=== PATIENT | female | born 1970 | race Caucasian/White ===

== ENCOUNTER 2023-08-24 14:29 | Emergency (ER) | payer OTHER, SELFPAY ==
--- NOTE | 2023-08-24 14:38 | XRR_ITS ---
PROCEDURE INFORMATION: Exam: XR Left Elbow Exam date and time: 08/24/2023 2:56 PM Age: 53 years old Clinical indication: Injury or trauma; Fall; Blunt trauma (contusions or hematomas); Elbow; Left TECHNIQUE: Imaging protocol: Radiologic exam of the left elbow. Views: 1 or 2 views. COMPARISON: No relevant prior studies available. FINDINGS: Bones/joints: Acute widely displaced transverse oblique distal humeral fracture. There is an approximately 4 cm overriding of the distal humeral fragment and humeral shaft with lateral angulation of the humeral shaft. Associated joint effusion. Correlation with CT is recommended for further detail. Radiocapitellar and ulnar trochlear alignment is grossly maintained. Soft tissues: Soft tissue edema and deformity of the antecubital fossa secondary to the displaced proximal humeral fragment. XR/XR elbow LT 2V [id number] IMPRESSION: 1. Acute widely displaced distal humeral fracture. Orthopedic evaluation and follow-up CT is recommended for further detail.
--- NOTE | 2023-08-24 14:39 | ED_ITS ---
HPI - Extremity Problem General: Chief complaint: Extremity Injury, Upper Stated complaint: Fall Time Seen by Provider: 08/24/23 14:35 Source: patient and EMS Mode of arrival: EMS Limitations: no limitations History of Present Illness: 53-year-old female states that she had f ell walking to her mailbox. States she had landed on her left arm has left elbow pain. She rates her pain a 8 out of 10 denies any other injuries. Associated symptoms: Deny chest pain, fever(s) or rash Review of Systems Const: Denies: fever(s), chills, body aches or change in appetite ENMT: Denies: throat pain or dental pain Card: Denies: chest pain Resp: Denies: dyspnea GI: Denies: abdominal pain, nausea, vomiting or diarrhea Musc: Reports: extremity pain; Denies: neck pain or back pain Skin/Breast: Denies: rash Neuro: Denies: headache(s) Physical Exam Const: COMMON NORMALS: no acute distress, patient oriented x3 and healthy appearing HENMT: COMMON NORMALS: normocephalic and atraumatic HEAD & SCALP: normocephalic and atraumatic Neck/C-Spine: COMMON NORMALS: full ROM and supple Chest: COMMONS NORMALS: normal inspection of the chest Resp: COMMON NORMALS: normal respiratory effort Cardio: COMMON NORMALS: regular rate, regular rhythm and No murmurs present (Cardio) RATE: regular rate RHYTHM: regular rhythm Extremity: NARRATIVE EXTREMITY EXAM: tenderness to left elbow distal pulses intact Neuro: COMMON NORMALS: patient oriented x3, moves all extremities and no focal motor deficits Psych: COMMON NORMALS: mental status grossly normal, Normal thought process present and cooperative THOUGHT PROCESS: Normal thought process present Skin: COMMON NORMALS: no rashes or lesions noted and no wounds GENERAL SKIN EXAM: no rashes or lesions noted Course Vital Signs: Vital signs: Vital Signs Temperature 98.7 F 08/24/23 14:43 Pulse Rate 60 08/24/23 15:18 Respiratory Rate 16 08/24/23 15:18 Blood Pressure 159/80 08/24/23 15:18 Pulse Oximetry 91 08/24/23 15:18 MDM - Extremity (Nontraumatic) Medical Decision Making Patient presents here with a left distal humerus fracture is severely displaced and spoke to my orthopedic surgeon who recommends transfer due to not having equipment did speak to [facility] will transfer there for higher level of care Medical Records I reviewed the patient's medical records. All radiology interpretation(s) finalized by discharge Discharge Plan Discharge Patient Disposition: Xfer Short-Term Hosp Clinical Impression: Fracture of humerus Condition: Stable Coding Level of Care Code ED Electrician Deck for Bre Payne
[2023-08-24 14:43] VITALS: BP 159/80; PULSE 65; RESP 20; TEMP 37.1; O2SAT 97; BMI 29.0
[2023-08-24 15:13] VITALS: RESP 16; O2SAT 96
[2023-08-24] MEDS: HYDROmorphone 1 mg/mL INJ 1 mL IVP (15:13)
[2023-08-24 15:18] VITALS: BP 159/80; PULSE 60; RESP 16; O2SAT 91
[2023-08-24 15:59] VITALS: BP 147/81; PULSE 106; O2SAT 97
[2023-08-24 16:23] LABS: Basophils % 0.4 %; Eosinophils # 0.1 10^3/uL (0.0-0.8); Eosinophils % 0.7 %; Hematocrit 42.8 % (36-47); Lymphocytes # 1.9 10^3/uL (0.8-4.8); Lymphocytes % 16.6 %; Mean Corpuscular HGB Conc 32.5 g/dL (30-55); Mean Corpuscular Hemoglobin 29.5 pg (27-33); Mean Corpuscular Volume 90.9 fl (85-98); Mean Platelet Volume 9.1 fL (7.4-10.4); Monocytes # 0.7 10^3/uL (0.2-0.9); Monocytes % 6.5 %; Neutrophils % 75.4 %; Nucleated Red Blood Cells % 0 %; Platelet Count 216 10^3/cmm (157-399); Red Blood Count 4.71 10^6/uL (3.85-5.65); White Blood Count 11.13 10^3/uL (3.29-11.43)
[2023-08-24 16:40] LABS: Alanine Aminotransferase 14 U/L (0-33); Albumin Level 4.4 g/dL (3.5-5.2); Alkaline Phosphatase 59 U/L (35-105); Anion Gap 15.6 (5-19); Aspartate Amino Transferase 16 U/L (0-32); Blood Urea Nitrogen 14 mg/dL (6-20); Calcium 9.5 mg/dL (8.5-10.5); Carbon Dioxide 25 mmol/L (22-29); Chloride 108 mmol/L (98-107); Globulin 2.9 g/dL (1.3-4.6); Glomerular Filtration Rate 128.1 mL/min (90-130); Glucose 106 mg/dL (65-115); Osmolality Calculated 301 mOsm/kg (285-295); Potassium 3.6 mmol/L (3.5-5.1); Sodium 145 mmol/L (136-145); Total Bilirubin 0.4 mg/dL (0.15-1.2); Total Protein 7.3 g/dL (6.6-8.7)
[2023-08-24 17:11] VITALS: BP 134/71; PULSE 95; O2SAT 97
[2023-08-24 18:00] LABS: INR 0.95 (0.8-1.2)
[2023-08-24 18:43] VITALS: RESP 17; O2SAT 98
[2023-08-24] MEDS: HYDROmorphone 1 mg/mL INJ 1 mL 2 MG IVP (18:43)
== END 2023-08-24 19:10 | disposition short-term general hospital (02) ==
PROVIDERS: Emergency Provider Emergency Medicine
DX: S42.402A Unspecified fracture of lower end of left humerus, initial encounter for closed fracture (principal); W19.XXXA Unspecified fall, initial encounter
CPT/HCPCS: 36415; 73070; 73080; 80053; 85025; 85610; 96374; 96376; 99284; J1170

== ENCOUNTER → 2024-03-16 12:59 | Outpatient (BNVA) | payer OTHER, SELFPAY | PROVIDERS: Referring Provider Family Medicine; Visit Provider Internal Medicine | DX: E27.9 Disorder of adrenal gland, unspecified (principal); R53.83 Other fatigue | CPT/HCPCS: 36415; 80053; 82088; 84244; 84439; 84443 ==

== ENCOUNTER 2024-04-03 14:26 | Outpatient (CLI) | payer OTHER, SELFPAY ==
[2024-04-03 18:24] LABS: Urine Creatinine 77 mg/dL (28-217)
[2024-04-03 19:21] LABS: Total Volume Urine 1900 ml
== END 2024-04-03 14:27 | disposition home or self-care (01) ==
PROVIDERS: Visit Provider Internal Medicine
DX: E27.9 Disorder of adrenal gland, unspecified (principal); R53.83 Other fatigue
CPT/HCPCS: 82384; 82530; 82570; 83835

== ENCOUNTER 2024-04-26 16:33 | Outpatient (CLI) | payer OTHER, SELFPAY ==
[2024-04-26 17:11] LABS: Blood Urea Nitrogen 16 mg/dL (6-20); Calcium 9.2 mg/dL (8.5-10.5); Carbon Dioxide 23 mmol/L (22-29); Chloride 102 mmol/L (98-107); Glomerular Filtration Rate 103.4 mL/min (90-130); Glucose 97 mg/dL (65-115); Osmolality Calculated 289 mOsm/kg (285-295); Sodium 139 mmol/L (136-145)
[2024-04-26 17:16] LABS: Anion Gap 18.4 (5-19); Potassium 4.4 mmol/L (3.5-5.1)
== END 2024-04-26 16:34 | disposition home or self-care (01) ==
LOC: LAB 16:35
PROVIDERS: PCP Internal Medicine; Visit Provider Internal Medicine
DX: E27.9 Disorder of adrenal gland, unspecified (principal); D35.01 Benign neoplasm of right adrenal gland; D35.02 Benign neoplasm of left adrenal gland
CPT/HCPCS: 36415; 80048

== ENCOUNTER 2024-05-09 17:07 | Emergency (ER) | payer OTHER, SELFPAY ==
[2024-05-09] VITALS (31 sets, daily range): BP systolic 125–167; BP diastolic 73–122; PULSE 47–72; RESP 16–24; TEMP 36.8; O2SAT 93–100; BMI 33.4
--- NOTE | 2024-05-09 18:03 | XRR_ITS ---
PROCEDURE INFORMATION: Exam: XR Chest Exam date and time: 05/09/2024 6:53 PM Age: 54 years old Clinical indication: Pain; Chest pressure; Additional info: Chest pain TECHNIQUE: Imaging protocol: Radiologic exam of the chest. Views: 1 view. COMPARISON: No relevant prior studies available. FINDINGS: Lungs: Unremarkable. No consolidation. Pleural spaces: Unremarkable. No pleural effusion. No pneumothorax. Heart/Mediastinum: Unremarkable. No cardiomegaly. Bones/joints: ACDF hardware noted in the lower cervical spine. XR/XR chest 1V portable [id number] IMPRESSION: No acute findings.
--- NOTE | 2024-05-09 18:03 | ECG_ITS ---
[facility] Test Date: 2024-05-09 Pat Name: Lisa Alvarez Department: Room: Gender: Female Training Specialist: : 1970 Requested By: Elmer Dover Order Number: [id number] Reading MD: AVIS SOLIS Measurements Intervals [place] Rate: 71 P: 55 WI: 156 QRS: -5 QRSD: 103 T: 42 QT: 390 QTc: 424 Interpretive Statements SINUS RHYTHM NONSPECIFIC T-WAVE ABNORMALITY No previous ECG available for comparison Electronically Signed On 05-10-2024 20:08:13 CDT by AVIS SOLIS [id number]
--- NOTE | 2024-05-09 18:57 | W.ED.CHESTPA ---
HPI - Chest Pain General: Chief Complaint: Chest Pain Stated Complaint: chest pain Time Seen by Provider: 05/09/24 18:37 History of Present Illness: Patient presents to the ER having chest pain that started the day for yesterday then went away, restarted again today about an hour ago. Patient did not have any nitro to take so she took her clonidine Zofran and 3 and 24 mg aspirin prior to arrival. Patient does state report recent change in blood pressure medicine. Patient rates pain an 8 out of 10 at this time says it substernal radiates into her back radiates up into her neck and down her left arm. She does report and shortness of breath. Did have a STEMI back in 2014 ended up with a stent in her RCA. Patient denies any diaphoresis or nausea at this time Related Data Home Medications Medication Instructions Recorded Confirmed amlodipine 10 mg tablet 10 mg PO DAILY 08/24/23 05/05/24 aspirin 325 mg tablet 325 mg PO DAILY 08/24/23 05/05/24 atorvastatin 20 mg tablet 20 mg PO QPM 08/24/23 05/05/24 butalbital 50 mg-acetaminophen 300 1 cap PO Q6H PRN Pain 08/24/23 05/05/24 mg-caffeine 40 mg-codeine 30 mg cap carvedilol 25 mg tablet 25 mg PO BID 08/24/23 05/05/24 cholecalciferol (vitamin D3) 25 25 mcg PO DAILY 08/24/23 05/05/24 mcg (1,000 unit) capsule (Vitamin D3) clonazepam 0.5 mg tablet 0.5 mg PO TID PRN Blood Pressure 08/24/23 05/05/24 eszopiclone 3 mg tablet (Lunesta) 3 mg PO BEDTIME 08/24/23 05/05/24 famotidine 40 mg tablet 40 mg PO BID 08/24/23 05/05/24 fenofibrate nanocrystallized 145 145 mg PO DAILY 08/24/23 05/05/24 mg tablet furosemide 40 mg tablet 40 mg PO DAILY PRN Edema 08/24/23 05/05/24 galcanezumab-gnlm 120 mg/mL 1 mg SUBCUT Q30D 08/24/23 05/05/24 subcutaneous pen injector (Emgality Pen) hydrochlorothiazide 25 mg tablet 25 mg PO DAILY PRN Blood Pressure 08/24/23 05/05/24 ibuprofen 800 mg tablet 800 mg PO Q8H PRN Pain 08/24/23 05/05/24 melatonin 10 mg tablet 30 mg PO DAILY 08/24/23 05/05/24 metformin 500 mg tablet,extended 500 mg PO DAILY 08/24/23 05/05/24 release 24 hr nitroglycerin 0.4 mg sublingual 0.4 mg sublingual Q5M PRN Chest 08/24/23 05/05/24 tablet (Nitrostat) Pain ondansetron 4 mg disintegrating 4 mg PO Q6H 08/24/23 05/05/24 tablet oxybutynin chloride 5 mg tablet 5 mg PO TID 08/24/23 05/05/24 pantoprazole 40 mg tablet,delayed 40 mg PO DAILY 08/24/23 05/05/24 release (Protonix) promethazine 25 mg tablet 25 mg PO QID PRN Nausea And 08/24/23 05/05/24 Vomiting rimegepant 75 mg disintegrating 75 mg PO DAILY PRN Migraine 08/24/23 05/05/24 tablet (Nurtec ODT) Headache ropinirole 2 mg tablet 2 mg PO TID 08/24/23 05/05/24 scopolamine base 1 mg over 3 days 1 patch transdermal Q72H PRN 08/24/23 05/05/24 transdermal patch Motion Sickness sucralfate 1 gram tablet (Carafate) 1 g PO QID 08/24/23 05/05/24 trazodone 100 mg tablet 100 mg PO BEDTIME 08/24/23 05/05/24 valacyclovir 1 gram tablet 1,000 mg PO DAILY PRN Cold Sores 08/24/23 05/05/24 (Valtrex) valsartan 320 mg tablet 320 mg PO DAILY 08/24/23 05/05/24 clonidine HCl 0.1 mg tablet 0.1 mg PO 04/06/24 05/05/24 escitalopram oxalate 20 mg tablet 20 mg PO 04/06/24 05/05/24 Previous Rx's Medication Instructions Recorded spironolactone 50 mg tablet 50 mg PO BID #60 tabs 04/06/24 nitroglycerin 0.4 mg sublingual 0.4 mg sublingual Q5M PRN chest 05/09/24 tablet pain #90 tabs Allergies Allergy/AdvReac Type Severity Reaction Status Date / Time No Known Allergies Allergy Unverified 05/05/24 09:48 Review of Systems General: Reports: 10 or more systems reviewed and unremarkable except in HPI and below PFSH ED PFSH: Medical History HTN (hypertension) Bilateral adrenal adenomas Social History Smoking and tobacco/nicotine status: never used tobacco/nicotine Physical Exam Const: COMMON NORMALS: no acute distress, average body habitus, patient oriented x3, no limitations, healthy appearing, alert and well nourished HENMT: COMMON NORMALS: normocephalic, atraumatic, hearing grossly normal bilaterally, external ears normal, Normal external nose present and moist oral mucous membranes HEAD & SCALP: normocephalic and atraumatic NOSE: Normal external nose present EXTERNAL EAR: Yes external ears normal Neck/C-Spine: COMMON NORMALS: no JVD Chest: COMMONS NORMALS: normal inspection of the chest and normal palpation of entire chest wall Resp: COMMON NORMALS: normal respiratory effort, No retractions, No use of accessory muscles and clear to auscultation bilaterally AUSCULTATION: clear to auscultation bilaterally Cardio: COMMON NORMALS: no JVD, regular rate, regular rhythm, S1 normal heart sound present, S2 normal heart sound present, No gallops present (Cardio), No clicks present (Cardio), No murmurs present (Cardio) and No rub (Cardio) RATE: regular rate RHYTHM: regular rhythm HEART SOUNDS: S1 normal heart sound present and S2 normal heart sound present GI: COMMON NORMALS: Normal to inspection, nondistended, normoactive bowel sounds present, Soft to palpation, non-tender, No hepatosplenomegaly present and no masses PALPATION: Yes Soft to palpation and Yes No hepatosplenomegaly present Neuro: COMMON NORMALS: patient oriented x3 SENSORIUM/ORIENTATION: Yes alert Course Vital Signs: Vital signs: Vital Signs Temperature 98.2 F 05/09/24 17:22 Pulse Rate 54 L 05/09/24 21:40 Respiratory Rate 17 05/09/24 19:03 Blood Pressure 140/83 05/09/24 21:40 Pulse Oximetry 99 05/09/24 21:40 Oxygen Delivery Me thod Room Air 05/09/24 20:45 MDM - Chest Pain Medical Decision Making Patient was worked up in standard chest pain fashion with serial EKGs serial enzymes and chest x-ray, all of which was essentially benign. Patient will be sent a nitro prescription to her pharmacy as she is out and referred urology through case management. Patient be discharged home. Lab Data 05/09/24 18:50 05/09/24 18:50 Radiology Impressions Chest X-Ray 05/09/24 18:03 IMPRESSION: No acute findings. Laboratory Results WBC 6.89 10^3/uL (3.29-11.43) 05/09/24 18:50 RBC 4.72 10^6/uL (3.85-5.65) 05/09/24 18:50 Hgb 14.30 g/dL (11.27-16.99) 05/09/24 18:50 Hct 41.4 % (36-47) 05/09/24 18:50 MCV 87.7 fl (85-98) 05/09/24 18:50 MCH 30.3 pg (27-33) 05/09/24 18:50 MCHC 34.5 g/dL (30-55) 05/09/24 18:50 RDW 14.8 % (12.1-15.1) 05/09/24 18:50 Plt Count 180 10^3/cmm (157-399) 05/09/24 18:50 MPV 9.4 fL (7.4-10.4) 05/09/24 18:50 Neut % (Auto) 39.5 % 05/09/24 18:50 Lymph % (Auto) 50.5 % 05/09/24 18:50 [place] % (Auto) 7.3 % 05/09/24 18:50 Eos % (Auto) 2.0 % 05/09/24 18:50 Baso % (Auto) 0.6 % 05/09/24 18:50 Neut # (Auto) 2.72 10^3/uL (1.8-7.7) 05/09/24 18:50 Lymph # (Auto) 3.5 10^3/uL (0.8-4.8) 05/09/24 18:50 [place] # (Auto) 0.5 10^3/uL (0.2-0.9) 05/09/24 18:50 Eos # (Auto) 0.1 10^3/uL (0.0-0.8) 05/09/24 18:50 Baso # (Auto) 0.0 10^3/uL (0.0-0.1) 05/09/24 18:50 Nucleated RBC % (auto) 0 % 05/09/24 18:50 Nucleated RBCs # 0.0 /100WBC 05/09/24 18:50 Sodium 140 mmol/L (136-145) 05/09/24 18:50 Potassium 3.4 mmol/L (3.5-5.1) L 05/09/24 18:50 Chloride 106 mmol/L (98-107) 05/09/24 18:50 Carbon Dioxide 20 mmol/L (22-29) L 05/09/24 18:50 Anion Gap 17.4 (5-19) 05/09/24 18:50 BUN 8 mg/dL (6-20) 05/09/24 18:50 Creatinine 0.5 mg/dL (0.5-0.9) 05/09/24 18:50 GFR Calculation 127.6 mL/min (90-130) 05/09/24 18:50 Glucose 76 mg/dL (65-115) 05/09/24 18:50 Calculated Osmolality 287 mOsm/kg (285-295) 05/09/24 18:50 Calcium 8.9 mg/dL (8.5-10.5) 05/09/24 18:50 Total Bilirubin 0.3 mg/dL (0.15-1.2) 05/09/24 18:50 AST 34 U/L (0-32) H 05/09/24 18:50 ALT 33 U/L (0-33) 05/09/24 18:50 Alkaline Phosphatase 87 U/L (35-105) 05/09/24 18:50 Troponin T Baseline 7 ng/L (0-10) 05/09/24 18:50 Troponin T 120 Minute 7.74 ng/L (0-10) 05/09/24 21:00 Delta Troponin T 0.74 ABS# (0-10) 05/09/24 21:00 Total Protein 7.0 g/dL (6.6-8.7) 05/09/24 18:50 Albumin 4.3 g/dL (3.5-5.2) 05/09/24 18:50 Globulin 2.7 g/dL (1.3-4.6) 05/09/24 18:50 All radiology interpretation(s) finalized by discharge Discharge Plan Discharge Patient Disposition: Home Clinical Impression: Chest pain Qualifiers: Chest pain type: unspecified Qualified Code(s): R07.9 - Chest pain, unspecified Condition: Stable Prescriptions: New nitroglycerin 0.4 mg tablet, sublingual 0.4 mg sublingual Q5M PRN (Reason: chest pain) Qty: 90 0RF Rx Instructions: do not exceed 3 doses per episode No Action clonidine HCl 0.1 mg tablet 0.1 mg PO escitalopram oxalate 20 mg tablet 20 mg PO spironolactone 50 mg tablet 50 mg PO BID Qty: 60 2RF carvedilol 25 mg Tablet 25 mg PO BID Rx Instructions: must administer with a meal/food atorvastatin 20 mg Tablet 20 mg PO QPM aspirin 325 mg Tablet 325 mg PO DAILY Valtrex 1 gram Tablet 1,000 mg PO DAILY PRN (Reason: Cold Sores) Carafate 1 gram Tablet 1 g PO QID famotidine 40 mg tablet 40 mg PO BID clonazepam 0.5 mg Tablet 0.5 mg PO TID PRN (Reason: Blood Pressure) trazodone 100 mg Tablet 100 mg PO BEDTIME amlodipine 10 mg Tablet 10 mg PO DAILY ropinirole 2 mg Tablet 2 mg PO TID Protonix 40 mg tablet,delayed release (DR/EC) 40 mg PO DAILY promethazine 25 mg Tablet 25 mg PO QID PRN (Reason: Nausea And Vomiting) valsartan 320 mg Tablet 320 mg PO DAILY scopolamine base 1 mg over 3 days Patch 3 Day 1 patch TRANSDERMAL Q72H PRN (Reason: Motion Sickness) ondansetron 4 mg Tablet,Disintegrating 4 mg PO Q6H Vitamin D3 25 mcg (1,000 unit) Capsule 25 mcg PO DAILY Lunesta 3 mg Tablet 3 mg PO BEDTIME fenofibrate nanocrystallized 145 mg Tablet 145 mg PO DAILY btuvdtawsb-cpmnnukvev-oov-cod [id number] mg Capsule 1 cap PO Q6H PRN (Reason: Pain) furosemide 40 mg Tablet 40 mg PO DAILY PRN (Reason: Edema) ibuprofen 800 mg Tablet 800 mg PO Q8H PRN (Reason: Pain) Nitrostat 0.4 mg Tablet, Sublingual 0.4 mg SUBLINGUAL Q5M PRN (Reason: Chest Pain) Rx Instructions: do not exceed 3 doses per episode hydrochlorothiazide 25 mg Tablet 25 mg PO DAILY PRN (Reason: Blood Pressure) oxybutynin chloride 5 mg Tablet 5 mg PO TID metformin 500 mg Tablet Extended Release 24 Hr 500 mg PO DAILY melatonin 10 mg Tablet 30 mg PO DAILY Emgality Pen 120 mg/mL Pen Injector 1 mg SUBCUT Q30D Nurtec ODT 75 mg Tablet,Disintegrating 75 mg PO DAILY PRN (Reason: Migraine Headache) Discharge Orders: Discharge ED (Routine); Ordered 05/09/24 Ordered By: Elmer Dover Referrals: Rhona Crandall MD [Primary Care Provider] - Patient Instructions: Chest Pain (DC) Activity Restrictions/Additional Instructions: Your evaluation in the ER for your chest pain was unremarkable. Your lab work your EKGs were benign. A prescription for nitroglycerin has been sent into your pharmacy. Please take it as directed. You have been referred to case management to get an appointment with a diagnostic sales specialist. They should be calling you probably tomorrow morning to arrange this follow-up. If your chest pain changes returns or worsens please feel free to return to the ER. Coding Level of Care Code ED Automobile Appraiser for Bre Payne
[2024-05-09 19:04] LABS: Basophils % 0.6 %; Eosinophils # 0.1 10^3/uL (0.0-0.8); Hematocrit 41.4 % (36-47); Lymphocytes # 3.5 10^3/uL (0.8-4.8); Lymphocytes % 50.5 %; Mean Corpuscular HGB Conc 34.5 g/dL (30-55); Mean Corpuscular Hemoglobin 30.3 pg (27-33); Mean Corpuscular Volume 87.7 fl (85-98); Mean Platelet Volume 9.4 fL (7.4-10.4); Monocytes # 0.5 10^3/uL (0.2-0.9); Monocytes % 7.3 %; Neutrophils # 2.72 10^3/uL (1.8-7.7); Neutrophils % 39.5 %; Nucleated Red Blood Cells % 0 %; Platelet Count 180 10^3/cmm (157-399); Red Blood Count 4.72 10^6/uL (3.85-5.65); Red Cell Distribution Width 14.8 % (12.1-15.1); White Blood Count 6.89 10^3/uL (3.29-11.43)
[2024-05-09] MEDS: nitroglycerin 0.4 mg sublingual Tablet SUBLINGUAL ×2 (19:12→20:09)
[2024-05-09] MEDS: ondansetron 2 mg/ML SDV 2 mL 4 MG IVP (19:13)
[2024-05-09] MEDS: morphine 4 mg/mL SDV 1 mL IVP (19:14)
[2024-05-09 19:20] LABS: Alanine Aminotransferase 33 U/L (0-33); Albumin Level 4.3 g/dL (3.5-5.2); Alkaline Phosphatase 87 U/L (35-105); Blood Urea Nitrogen 8 mg/dL (6-20); Calcium 8.9 mg/dL (8.5-10.5); Carbon Dioxide 20 mmol/L (22-29); Chloride 106 mmol/L (98-107); Creatinine Clr Calc Pharmacy 145.0562; Globulin 2.7 g/dL (1.3-4.6); Glomerular Filtration Rate 127.6 mL/min (90-130); Glucose 76 mg/dL (65-115); Osmolality Calculated 287 mOsm/kg (285-295); Sodium 140 mmol/L (136-145); Total Bilirubin 0.3 mg/dL (0.15-1.2)
[2024-05-09 19:23] LABS: Anion Gap 17.4 (5-19); Aspartate Amino Transferase 34 U/L (0-32); Potassium 3.4 mmol/L (3.5-5.1)
[2024-05-09 19:35] LABS: Troponin(5th) Baseline 7 ng/L (0-10)
--- NOTE | 2024-05-09 19:44 | ECG_ITS ---
[facility] Test Date: 2024-05-09 Pat Name: Lisa Alvarez Department: Room: Gender: Female Hearing Aid Technician: : 1970 Requested By: Elmer Dover Order Number: [id number] Reading MD: AVIS SOLIS Measurements Intervals [place] Rate: 57 P: 29 [place]: 151 QRS: 3 QRSD: 104 T: 28 QT: 449 QTc: 438 Interpretive Statements SINUS BRADYCARDIA Compared to ECG 05/09/2024 17:14:41 Sinus rhythm no longer present T-wave abnormality no longer present Electronically Signed On 05-10-2024 20:12:07 CDT by AVIS SOLIS [id number]
[2024-05-09 21:29] LABS: Troponin 5 2HR 7.74 ng/L (0-10); Troponin 5 2HR Delta 0.74 ABS# (0-10)
--- NOTE | 2024-05-10 08:45 | DCPLANNER ---
Message sent to Cardiology for referral -chest pain Dx CAD
== END 2024-05-09 22:01 | disposition home or self-care (01) ==
PROVIDERS: Emergency Provider Emergency Medicine; PCP Internal Medicine
DX: R07.9 Chest pain, unspecified (principal); Z79.82 Long term (current) use of aspirin; I10 Essential (primary) hypertension
CPT/HCPCS: 36415; 71045; 80053; 84484; 85025; 93005; 96374; 96375; 99285; J2270; J2405

== ENCOUNTER 2024-05-10 16:39 | Observation (INO) | payer OTHER, SELFPAY ==
--- NOTE | 2024-05-10 16:51 | P.HP_ITS ---
Providers/Chief Complaint 2 Admitting Physician: Kevin Kearns M.D Primary Care Provider: Rhona Crandall MD Chief Complaint: unstable angina History of Present Illness October Antonio is a 54 year old female with past medical history of RCA stent, hypertension who has been having worsening chest pain symptoms over the last 2 to 3 days. Pain starts substernally and radiates to the jaw and left arm. Multiple episode lasting up to 40 minutes. She was was seen in the ER yesterday and ACS was ruled out. However multiple episodes of chest discomfort since. EKG had nonspecific ST-T wave changes Review of Systems 2 General: Reports: 10 or more systems reviewed and unremarkable except in HPI and below Card: Reports: chest pain (pressure), palpitations, swelling of feet/ankles, lightheadedness, pre-syncope, dyspnea on exertion and other (Pain up neck and down left arm); Denies: irregular heart rhythm, edema, syncope, orthopnea or leg pain with exertion Resp: Reports: dyspnea; Denies: productive cough or non-productive cough Musc: Reports: joint pain (left shoulder blade); Denies: extremity pain or extremity swelling Neuro: Reports: dizziness Medications/Allergies Home Medications Medication Instructions Recorded Confirmed Last Taken Type amlodipine 10 mg tablet 10 mg PO DAILY 08/24/23 05/11/24 05/10/24 History aspirin 325 mg tablet 325 mg PO DAILY 08/24/23 05/11/24 05/09/24 History atorvastatin 20 mg tablet 20 mg PO QPM 08/24/23 05/11/24 05/10/24 History butalbital 50 mg-acetaminophen 300 1 cap PO Q6H PRN Pain 08/24/23 05/11/24 Unknown History mg-caffeine 40 mg-codeine 30 mg cap carvedilol 25 mg tablet 25 mg PO BID 08/24/23 05/11/24 05/10/24 History cholecalciferol (vitamin D3) 25 25 mcg PO DAILY 08/24/23 05/11/24 05/10/24 History mcg (1,000 unit) capsule (Vitamin D3) clonazepam 0.5 mg tablet 0.5 mg PO TID PRN Blood Pressure 08/24/23 05/11/24 05/10/24 History eszopiclone 3 mg tablet (Lunesta) 3 mg PO BEDTIME 0105/11/24 05/10/24 History famotidine 40 mg tablet 40 mg PO BID 08/24/23 05/11/24 05/10/24 History fenofibrate nanocrystallized 145 145 mg PO DAILY 08/24/23 05/11/24 05/09/24 History mg tablet furosemide 40 mg tablet 40 mg PO DAILY PRN Edema 08/24/23 05/11/24 Unknown History galcanezumab-gnlm 120 mg/mL 1 mg SUBCUT Q30D 08/24/23 05/11/24 04/15/24 History subcutaneous pen injector (Emgality Pen) hydrochlorothiazide 25 mg tablet 25 mg PO DAILY PRN Blood Pressure 08/24/23 05/11/24 Unknown History ibuprofen 800 mg tablet 800 mg PO Q8H PRN Pain 08/24/23 05/11/24 05/10/24 History melatonin 10 mg tablet 30 mg PO DAILY 08/24/23 05/11/24 05/09/24 History ondansetron 4 mg disintegrating 4 mg PO Q6H 08/24/23 05/11/24 05/10/24 History tablet oxybutynin chloride 5 mg tablet 5 mg PO TID 08/24/23 05/11/24 05/10/24 History pantoprazole 40 mg tablet,delayed 40 mg PO DAILY 08/24/23 05/11/24 05/10/24 History release (Protonix) promethazine 25 mg tablet 25 mg PO QID PRN Nausea And 08/24/23 05/11/24 05/10/24 History Vomiting rimegepant 75 mg disintegrating 75 mg PO DAILY PRN Migraine 08/24/23 05/11/24 Unknown History tablet (Nurtec ODT) Headache ropinirole 2 mg tablet 2 mg PO TID 08/24/23 05/11/24 05/10/24 History scopolamine base 1 mg over 3 days 1 patch transdermal Q72H PRN 08/24/23 05/11/24 Unknown History transdermal patch Motion Sickness sucralfate 1 gram tablet (Carafate) 1 g PO QID 08/24/23 05/11/24 05/10/24 History valacyclovir 1 gram tablet 1,000 mg PO DAILY PRN Cold Sores 08/24/23 05/11/24 05/10/24 History (Valtrex) valsartan 320 mg tablet 320 mg PO DAILY 08/24/23 05/11/24 05/03/24 History escitalopram oxalate 20 mg tablet 20 mg PO DAILY 04/06/24 05/11/24 05/10/24 History spironolactone 50 mg tablet 50 mg PO BID #60 tabs 04/06/24 05/11/24 05/10/24 Rx nitroglycerin 0.4 mg sublingual 0.4 mg sublingual Q5M PRN chest 05/09/24 05/11/24 05/09/24 Rx tablet pain #90 tabs tizanidine 4 mg tablet 4 mg PO TID 05/11/24 05/11/24 Unknown History Allergies Allergy/AdvReac Type Severity Reaction Status Date / Time No Known Allergies Allergy Verified 05/10/24 12:33 PFSH Acute 2 PFSH: Medical History HTN (hypertension) Bilateral adrenal adenomas Social History Smoking and tobacco/nicotine status: current every day tobacco/nicotine user Physical Exam 2 Narrative: GENERAL: Patient is alert, awake and oriented x3. [] NECK: No jugular vein distension. [] HEENT: No cyanosis. No icterus. No pallor. [] HEART: Regular S1 and S2. No murmur, rub or gallop. [] LUNGS: Clear to auscultate bilaterally. [] CENTRAL NERVOUS SYSTEM: Grossly nonfocal. [] EXTREMITIES: Lower extremities with 1+ edema bilaterally. Data 05/10/24 19:20 05/10/24 19:20 A&P Assessment and plan (1) Worsening angina: (2) HTN (hypertension): (3) Coronary artery disease: (4) Bilateral adrenal adenomas: Plan Patient has presented to clinic with worsening chest pain symptoms. This is concerning for unstable angina. She had ER visit yesterday where ACS was ruled out. Directly admitted for coronary angiogram given worsening chest pain symptoms over the last 2 to 3 days lasting about 20 minutes. EKG has nonspecific changes. We will trend troponins. Ordering echocardiogram. N.p.o. past midnight. Coronary angiogram with possible PCI in the morning. Risks and benefits of procedure been discussed. Attestations 2 Medical Necessity Statement*: Care not expected to cross 2 midnights. Patient has worsening anginal symptoms and plan for coronary angiogram with possible PCI in the AM Coding Level of Care Code Acute Code for Chg Fwd Diagnoses Worsening angina I20.0 HTN (hypertension) I10 Coronary artery disease I25.10 Bilateral adrenal adenomas D35.01; D35.02
[2024-05-10 17:13] VITALS: BP 152/84; PULSE 67; RESP 23; TEMP 36.8; O2SAT 97
[2024-05-10 17:34] VITALS: BP 180/90; PULSE 66; RESP 16; TEMP 37; O2SAT 96
[2024-05-10] MEDS: sodium chloride 0.9% 1,000 ML 75 ML IV (18:00)
[2024-05-10] MEDS: carvedilol 25 mg Tablet PO (18:01)
[2024-05-10] MEDS: atorvastatin 40 mg Tablet PO (18:01)
[2024-05-10 18:16] VITALS: BMI 33.5
--- NOTE | 2024-05-10 18:26 | ECG_ITS ---
[facility] Test Date: 2024-05-10 Pat Name: Lisa Alvarez Department: Room: 105 Gender: Female Service Desk Manager: : 1970 Requested By: Kevin Kearns Order Number: [id number] Reading MD: AVIS SOLIS Measurements Intervals [place] Rate: 64 P: 11 FL: 136 QRS: -14 QRSD: 110 T: 19 QT: 418 QTc: 431 Interpretive Statements SINUS RHYTHM Compared to ECG 05/09/2024 19:44:02 Sinus bradycardia no longer present Electronically Signed On 05-10-2024 20:10:38 CDT by AVIS SOLIS [id number]
[2024-05-10] MEDS: heparin 5,000 unit/mL INJ 1 mL IVP (18:29)
[2024-05-10] MEDS: nitroglycerin 1 gm/inch oint Pkt 1 INCH TOPICAL (18:29)
[2024-05-10] MEDS: heparin drip 25,000 UNIT/500 ML PREMIX 27 UNIT IV (18:30)
--- NOTE | 2024-05-10 19:22 | PC.NURSE ---
direct admit from dr magaña's office at 1700.sr on monitor.oriented to room environment.instructed to notify staff for any chest pain,sob,or for any concerns at all.pt verb understanding of instructions
[2024-05-10 19:36] LABS: Platelet Count 163 10^3/cmm (157-399)
[2024-05-10 19:51] LABS: Chloride 109 mmol/L (98-107); Potassium 3.3 mmol/L (3.5-5.1); Sodium 140 mmol/L (136-145)
[2024-05-10 19:55] LABS: Troponin(5th) Baseline 7 ng/L (0-10)
[2024-05-10 20:00] VITALS: BP 160/103; PULSE 68; RESP 17; TEMP 36.8; O2SAT 97
[2024-05-10 20:12] LABS: Alkaline Phosphatase 82 U/L (35-105)
[2024-05-10] MEDS: spironolactone 25 mg Tablet 50 MG PO (20:12)
[2024-05-10] MEDS: CLONazepam 0.5 mg Tablet PO (21:07)
[2024-05-10] MEDS: ropinirole 2 mg Tablet PO (21:07)
[2024-05-10] MEDS: oxybutynin 5 mg Tablet PO (21:07)
[2024-05-10 21:15] LABS: Alanine Aminotransferase 26 U/L (0-33); Anion Gap 13.3 (5-19); Aspartate Amino Transferase 26 U/L (0-32); Blood Urea Nitrogen 14 mg/dL (6-20); Carbon Dioxide 22 mmol/L (22-29); Creatinine Clr Calc Pharmacy 145.4608; Globulin 2.6 g/dL (1.3-4.6); Glomerular Filtration Rate 127.6 mL/min (90-130); Glucose 81 mg/dL (65-115); Osmolality Calculated 292 mOsm/kg (285-295); Total Bilirubin 0.2 mg/dL (0.15-1.2); Total Protein 6.5 g/dL (6.6-8.7)
[2024-05-10 21:32] LABS: Calcium 8.5 mg/dL (8.5-10.5)
[2024-05-10 22:02] LABS: Troponin 5 2HR 7.56 ng/L (0-10); Troponin 5 2HR Delta 0.56 ABS# (0-10)
[2024-05-11] VITALS (9 sets, daily range): BP systolic 128–181; BP diastolic 63–93; PULSE 55–88; RESP 16–27; TEMP 36.6–36.8; O2SAT 90–98
[2024-05-11] MEDS: nitroglycerin 1 gm/inch oint Pkt 1 INCH TOPICAL (00:27)
[2024-05-11 01:13] LABS: Partial Thromboplastin Time 134.2 SECONDS (23.9-36.7); Troponin 5 6HR 6.64 ng/L (0-10)
[2024-05-11 01:15] LABS: Troponin 5 6HR Delta -0.36 ng/L (0-12)
[2024-05-11] MEDS: sodium chloride 0.9% 1,000 ML 75 ML IV (05:03)
[2024-05-11] MEDS: diphenhydrAMINE 50 mg Capsule PO (05:03)
--- NOTE | 2024-05-11 05:14 | XACV_ITS ---
Exam Room: 2 Ht: 168 cm Wt: 94 kg BSA: 2.13 m2 Gender: Female : 1970 Any Known Allergies: No known allergies Exam Priority: Routine Procedure(s): Procedure Description: Diagnostic procedure Procedure Description: Left Heart Catheterization Procedure Description: Left ventriculography Procedure Description: Coronary Angiography Diagnostic Cath Status: Urgent Diagnostic Findings * INDICATION: Worsening angina. * No significant disease noted in the Left Main, Left Anterior Descending, Right, or Circumflex coronary arteries. * Proximal RCA has a patent prior stent. * Coronary angiography shows right dominance. Conclusions 1. No significant disease noted in the Left Main, Left Anterior Descending, Right, or Circumflex coronary arteries. 2. Normal left ventricular systolic function. Ejection fraction of 60%. Recommendations * Aggressive risk factor modification. Chest pain likely secondary to microvascular dysfunction. We will start long acting nitrate. * Outpatient cardiology follow up in 2 weeks. Interventional RX Recommendation: medical therapy and/or counseling Diagnostic RX Recommendation: medical therapy and/or counseling Anticoagulation: Heparin Ventriculography Ejection Fraction: 60.0 % Pressures Phase:Rest AO : 148 / 87 ( 114 ) @ 7:32:00 AM 170 / 83 ( 118 ) @ 7:38:00 AM 172 / 81 ( 118 ) @ 7:38:00 AM LV : 168 / -2 / 22 @ 7:37:00 AM 181 / / 26 @ 7:38:00 AM 180 / / 26 @ 7:38:00 AM Valves Phase:DefaultPhase AV : 9.0 @ 6:43:15 AM AV Mean Gradient: 9.0 @ 6:43:15 AM 9.0 @ 6:43:16 AM Clinical Evaluation EBL: 5mL-10mL Procedural Details Procedure Consent Obtained. Admit Source: In Patient. Pre-Procedure Time Out. Identified patient by full name and date of as verbalized by the patient/guarantor. Does the consent match the physician's order: Yes. Accurate & Complete Informed Consent: Yes. Inpatient/Outpatient History & Physical on Chart: Yes. If H&P is completed, is and addenduem needed: No; If yes, is the addendum complete: N/A. Visualize and Verify Site with Patient/Guarantor: N/A. Relevant Radiology Images available: Yes. Pre-op teaching completed and patient verbalized understanding. The risks, benefits, and alternatives of sedation and/or procedure were discussed by physician. The patient agrees to continue. Procedure started. [facility] Clinical Fraility Score: 3: Managing Well. Senior Software Tester Indications: Other. Chest Pain Symptom Assessment: Atypical Angina. Correct patient, site and procedure confirmed by cath team. Current diagnosis: Chest Pain. PERRLA. Strong, equal hand sr vice president bilaterally. Lungs clear x 5 lobes. IV Site on Arrival: 18 gauge in the left forearm. IV Fluids: 0.9% NaCl at KVO. 0 mL infused prior to supervisor dental laboratory. Pre Procedural Pulses: bilateral dorsalis pedis was 3+. Pre Procedural Pulses: bilateral posterior tibial was 3+. Pre Procedural Pulses: bilateral radial was 3+. Oxygen started at 2liters/min via nasal canula. right groin was prepped with chloroprep then draped in the usual sterile fashion. right radial was prepped with chloroprep then draped in the usual sterile fashion. Baseline sample Acquired. HR: 69 BPM. Physician arrived. Physician scrubbed in. Immediate Pre-Procedure Time Out. Correct Patient: Yes; Correct Procedure: Yes; Correct Site: Yes; Correct Patient Position: Yes; Correct Supplies: Yes; Dried Flammable Prep: Yes; Blood Products Available: N/A;. Lidocaine 1% infiltrated to the right radial. Arterial access obtained. A 5 upper sorbian TIG catheter in over wire. Multiple views taken of left coronary artery. Catheter redirected to the RCA. Multiple views taken of right coronary artery. Catheter removed over the exchange wire. A 5 upper sorbian Angled Pig catheter in over wire. EDP Sample taken: LV 168/-3,22; HR: 59 BPM; SpO2: 97%. LV gram performed in DANIEL @ 10 mL/second for a total of 30 mL. EDP Sample taken: LV 181/5,26; HR: 66 BPM; SpO2: 94%. Pullback taken: LV 180/4,26; AO 170/83(118); Mean: 9mmHg, Peak to Peak: 9mmHg, SEP: 20sec/min; HR: 61 BPM; SpO2: 94%. Catheter removed over the exchange wire. A TR Band was successful obtaining hemostatsis at the Right Radial artery insertion site. Post Procedure: Pulses reassessed and unchanged. PERRLA. Strong, equal hand sr vice president bilaterally. No VTE prophylaxis required. Medication's Wasted: Lidocaine 1% = 18 mL. Medication's Wasted: Nitro = 49.8 mg. Medication's Wasted: Heparin = 3500 units. Medication's Wasted: Other = Fentanyl 25 mcg. Vital chart was stopped. Total IV fluids: 25 mL. Complications: None. Estimated blood loss: 5mL-10mL. Responsiveness - Normal response to verbal stimuli; alert and oriented, PERRLA. Airway - Unaffected, no intervention required; spontaneous ventilation. Circulation: W/N/L, pulses unchanged. Nausea/Vomiting: No. Procedure completed. Patient transferred by bed to 1st floor. Access Site Site: Right Radial artery Sheath Size: 6 Fr Hemostasis Method: TR Band Hemostasis Success: Successful Procedure Medications Start: 6:26 AM Stop: 6:26 AM Medication: Versed Amount: 1 mg Route: I.V. Start: 6:26 AM Stop: 6:26 AM Medication: Fentanyl Amount: 50 mcg Route: I.V. Start: 6:28 AM Stop: 6:28 AM Medication: Versed Amount: 1 mg Route: I.V. Start: 6:29 AM Stop: 6:29 AM Medication: Nitrogylcerin Amount: 200 mcg Route: I.A. Start: 6:30 AM Stop: 6:30 AM Medication: Heparin Amount: 2500 units Route: I.V. Start: 6:33 AM Stop: 6:33 AM Medication: Fentanyl Amount: 25 mcg Route: I.V. I, the attending physician, have reviewed and verified all procedure medications. Yes, all medications given per verbal order History/Risk Factors Hypertension: Yes Dyslipidemia: No Peripheral Arterial Disease (PAD): No Myocardial Infarction (ME): No Obesity: No Tobacco Use: Current/Recent(w/in 1 year) Prior Interventions PCI: No CABG: No Valve Surgery: No Report Signatures Finalized by Kevin Kearns MD on 05/11/2024 06:56 AM
[2024-05-11] MEDS: lidocaine 1% 5 ML in potassium chloride premix 100 ML 52.5 ML IV (05:57)
[2024-05-11] MEDS: aspirin 325 mg Tablet PO (05:57)
--- NOTE | 2024-05-11 06:18 | PC.NURSE ---
Dr Kearns was notified about pt potassium 3.3. New order put in, potassium was scanned and sent with microbiology lab technician to procedure.
--- NOTE | 2024-05-11 06:49 | W.PM.OPSUD ---
Surgery/Procedure H&P Update DATE OF PROCEDURE: May 11, 2024 DATE H&P PERFORMED: 05/10/24 H&P UPDATE INFORMATION: I have reviewed H&P completed within last 30 days, I have examined patient prior to procedure and No changes to prior documentation PREOP DIAGNOSIS: Worsening angina PRIMARY INDICATION FOR PROCEDURE: Worsening angina PLANNED PROCEDURE: Operation Date: 05/11/24 06:00 Proposed Procedures p Cardiac Catheterization(Left) - Kevin Kearns M.D Possible percutaneous coronary intervention PATIENT REASSESSED PRIOR TO SEDATION, WITH NO CHANGE NOTED: Yes PHYSICAL EXAM: alert, oriented x 3, clear to auscultation bilaterally and regular rate & rhythm AIRWAY EVAL/ANESTHESIA PLAN: normal airway, ASA III, Local Anesthesia, Risks, benefits & alternatives of sedation and/or procedure discussed and Patient agrees to continue as planned ADDITIONAL INFORMATION: Moderate sedation
--- NOTE | 2024-05-11 07:02 | PC.NURSE ---
Patient returned to [facility] from manager laboratory at 0650 with a right radial TR-band.
[2024-05-11] MEDS: potassium chloride ER 20 mEq Tablet 40 MEQ PO (08:30)
[2024-05-11] MEDS: oxybutynin 5 mg Tablet PO (08:30)
[2024-05-11] MEDS: ropinirole 2 mg Tablet PO (08:30)
[2024-05-11] MEDS: carvedilol 25 mg Tablet PO (08:30)
[2024-05-11] MEDS: amlodipine 10 mg Tablet PO (08:30)
[2024-05-11] MEDS: spironolactone 25 mg Tablet 50 MG PO (08:30)
--- NOTE | 2024-05-11 09:20 | P.DS_ITS ---
Discharge Providers Date of Admission: 05/10/24 16:39 Date of Discharge: May 11, 2024 Attending Provider at Admission: Kevin Kearns M.D Attending Provider at Discharge: Kevin Kearns M.D Primary Care Provider: Rhona Crandall MD Diagnoses at Discharge Discharge Diagnosis (1) Worsening angina: Status: Inactive (2) HTN (hypertension): Status: Acute (3) Coronary artery disease: Status: Acute (4) Bilateral adrenal adenomas: Status: Acute Reason for Visit Reason for Visit: unstable angina Brief History: 54-year-old woman with past medical hist ory of coronary artery disease who has been having significant worsening chest pain symptoms over the last few days. Had ER visit for chest discomfort where ACS was ruled out and she was discharged with close follow-up with cardiology. However she continued having chest pain episodes. Urgent appointment with cardiology was made and was directly admitted from clinic to hospital for coronary angiogram as patient's symptoms concerning for unstable angina Hospital Course Hospital Course Coronary angiogram demonstrated patent prior RCA stent and no significant stenosis. Symptoms likely secondary to microvascular dysfunction. Patient was discharged home on isosorbide mononitrate. Echo showed normal LV systolic function. Physical Exam Narrative: GENERAL: Patient is alert, awake and oriented x3. [] NECK: No jugular vein distension. [] HEENT: No cyanosis. No icterus. No pallor. [] HEART: Regular S1 and S2. No murmur, rub or gallop. [] LUNGS: Clear to auscultate bilaterally. [] CENTRAL NERVOUS SYSTEM: Grossly nonfocal. [] EXTREMITIES: Lower extremities with 1+ edema bilaterally. Discharge Data Studies Completed and Pending Completed Studies During Hospitalization Category Date Time Status REACTOR SERVICE OPERATOR request for service Routine Exams 05/11/24 05:14 Completed Pending at discharge Category Date Time Status Platelet Count Q2D Lab 05/12/24 04:00 Ordered Platelet Count Q2D Lab 05/14/24 04:00 Ordered Laboratory Results Plt Count 163 10^3/cmm (157-399) 05/10/24 19:20 APTT 134.2 SECONDS (23.9-36.7) H 05/11/24 00:44 Sodium 140 mmol/L (136-145) 05/10/24 19:20 Potassium 3.3 mmol/L (3.5-5.1) L 05/10/24 19:20 Chloride 109 mmol/L (98-107) H 05/10/24 19:20 Carbon Dioxide 22 mmol/L (22-29) 05/10/24 19:20 Anion Gap 13.3 (5-19) 05/10/24 19:20 BUN 14 mg/dL (6-20) 05/10/24 19:20 Creatinine 0.5 mg/dL (0.5-0.9) 05/10/24 19:20 GFR Calculation 127.6 mL/min (90-130) 05/10/24 19:20 Glucose 81 mg/dL (65-115) 05/10/24 19:20 Calculated Osmolality 292 mOsm/kg (285-295) 05/10/24 19:20 Calcium 8.5 mg/dL (8.5-10.5) 05/10/24 19:20 Total Bilirubin 0.2 mg/dL (0.15-1.2) 05/10/24 19:20 AST 26 U/L (0-32) 05/10/24 19:20 ALT 26 U/L (0-33) 05/10/24 19:20 Alkaline Phosphatase 82 U/L (35-105) 05/10/24 19:20 Troponin T Baseline 7 ng/L (0-10) 05/10/24 19:20 Troponin T 120 Minute 7.56 ng/L (0-10) 05/10/24 21:22 Delta Troponin T 0.56 ABS# (0-10) 05/10/24 21:22 Troponin T Hi Sens 6Hr 6.64 ng/L (0-10) 05/11/24 00:44 Troponin T Hi Sens 6Hr Delta -0.36 ng/L (0-12) L 05/11/24 00:44 Total Protein 6.5 g/dL (6.6-8.7) L 05/10/24 19:20 Albumin 4.0 g/dL (3.5-5.2) 05/10/24 19:20 Globulin 2.6 g/dL (1.3-4.6) 05/10/24 19:20 Vitals Last Vital Signs Temp 97.9 F 05/11/24 07:13 Pulse 55 L 05/11/24 08:31 Resp 16 05/11/24 07:13 BP 168/93 05/11/24 08:31 Pulse Ox 90 05/11/24 08:01 O2 Del Method Room Air 05/11/24 07:13 Discharge Plan Discharge Patient Disposition: Home Condition: Stable Prescriptions: New isosorbide mononitrate 30 mg tablet extended release 24 hr 30 mg PO DAILY Qty: 30 1RF Continued escitalopram oxalate 20 mg tablet 20 mg PO DAILY spironolactone 50 mg tablet 50 mg PO BID Qty: 60 2RF carvedilol 25 mg Tablet 25 mg PO BID Rx Instructions: must administer with a meal/food atorvastatin 20 mg Tablet 20 mg PO QPM aspirin 325 mg Tablet 325 mg PO DAILY valacyclovir [Valtrex] 1 gram Tablet 1,000 mg PO DAILY PRN (Reason: Cold Sores) sucralfate [Carafate] 1 gram Tablet 1 g PO QID famotidine 40 mg tablet 40 mg PO BID clonazepam 0.5 mg Tablet 0.5 mg PO TID PRN (Reason: Blood Pressure) amlodipine 10 mg Tablet 10 mg PO DAILY ropinirole 2 mg Tablet 2 mg PO TID pantoprazole [Protonix] 40 mg tablet,delayed release (DR/EC) 40 mg PO DAILY promethazine 25 mg Tablet 25 mg PO QID PRN (Reason: Nausea And Vomiting) scopolamine base 1 mg over 3 days Patch 3 Day 1 patch TRANSDERMAL Q72H PRN (Reason: Motion Sickness) ondansetron 4 mg Tablet,Disintegrating 4 mg PO Q6H cholecalciferol (vitamin D3) [Vitamin D3] 25 mcg (1,000 unit) Capsule 25 mcg PO DAILY eszopiclone [Lunesta] 3 mg Tablet 3 mg PO BEDTIME fenofibrate nanocrystallized 145 mg Tablet 145 mg PO DAILY [id number]-aumyobmqda-seb-cod [id number] mg Capsule 1 cap PO Q6H PRN (Reason: Pain) furosemide 40 mg Tablet 40 mg PO DAILY PRN (Reason: Edema) ibuprofen 800 mg Tablet 800 mg PO Q8H PRN (Reason: Pain) oxybutynin chloride 5 mg Tablet 5 mg PO TID melatonin 10 mg Tablet 30 mg PO DAILY Emgality Pen 120 mg/mL Pen Injector 1 mg SUBCUT Q30D Nurtec ODT 75 mg Tablet,Disintegrating 75 mg PO DAILY PRN (Reason: Migraine Headache) nitroglycerin 0.4 mg tablet, sublingual 0.4 mg sublingual Q5M PRN (Reason: chest pain) Qty: 90 0RF Rx Instructions: do not exceed 3 doses per episode tizanidine 4 mg tablet 4 mg PO TID Discontinued valsartan 320 mg Tablet 320 mg PO DAILY hydrochlorothiazide 25 mg Tablet 25 mg PO DAILY PRN (Reason: Blood Pressure) Discharge Orders: Discharge Order (Routine); Ordered 05/11/24 Ordered By: Kevin Kearns Referrals: Marcella Francisco FNP [Nurse Practitioner] - 05/23/24 1:30 pm Discharge Diet: Cardiac Discharge Activity: Increase activity as tolerated Patient Instructions: Isosorbide Mononitrate (By mouth), Angina (DC), Coronary Artery Disease (DC), Opioid Safety, Post Angiogram Home Care Instructions Discharge Attestations Time Spent in Discharge Care*: less than 30 min Quality Metrics Clinical Quality Measures [ No reported AMI, CVA or VTE this stay] Coding Level of Care Code Acute Code for Chg Fwd Diagnoses Worsening angina I20.0 HTN (hypertension) I10 Coronary artery disease I25.10 Bilateral adrenal adenomas D35.01; D35.02
--- NOTE | 2024-05-11 09:52 | PC.CHAP ---
Pastoral Care Encounter/Spiritual Assessment Type of Contact [] Declined nuclear powerplant supervisor visit [] Patient/Family/Request visit [] Outpatient visit [] Follow-up visit [] Physician referral [] Code/Alert [x] Routine visit [] Staff referral [] Actively dying [] Patient sleeping [] Family support [] [] Out of room [] Palliative care [] [] Receiving care in room [] Pre-surgical visit [] Trauma [] Long length of stay [] ICU visit [] Other: Relational/Emotional Strength [x] Patient feels connected with others/family/visitors/staff [] Distress [] Loneliness/isolation [] Abandonment Spirituality of Patient [x] Person of Danna [] Attends Cheondoism of their Danna [x] Believes in Prayer [] Reads Bible or Christian materials [] There are Spiritual issues to be addressed Visual And Stock Associate Interventions [x] Prayer [x] Active listening [] Non-anxious presence [x] Spiritual/emotional support [] Crisis/trauma care [] Spiritual counseling [] Bereavement support [] Provided bereavement packet [] Provided Bible/devotional materials [] Provided toy/stuffed animal, coloring book to patient or family member [] Provided Communion [] Anointing/[place] [] Salvation [x] Completed spiritual assessment [] Other: Impact on Illness or Injury [] Angry [] Fearful [] Anxious [] Often cries [] Exhaustion [] Unable to work [] Unable to attend episcopal [] Unable to walk/stand [] Unable to read [] Unable to drive [] Unable to eat/drink [] Unable to sleep [] Unable to be with family [] Patient intubated [] Other: Summary Time spent with patient 5 min
--- NOTE | 2024-05-11 11:25 | USCV_ITS ---
October Age: 54 Gender: F : 1970 Exam Date: 05/11/2024 12:35 Ordering Phys: Kevin Kearns M.D ([email or web address]) Technologist: [place] [facility] [place]ST [place]IN BP: 160 / 78 HR: 68 Rhythm: Sinus Technical Quality: Adequate MEASUREMENTS (Male / Female) Normal Values 2D ECHO LV Diastolic Diameter PLAX 4.1 cm 4.2 - 5.9 / 3.9 - 5.3 cm IVS Diastolic Thickness 1.2 cm 0.6 - 1.0 / 0.6 - 0.9 cm IVS Systolic Thickness 1.8 cm LVPW Diastolic Thickness 1.2 cm 0.6 - 1.0 / 0.6 - 0.9 cm LVPW Systolic Thickness 1.6 cm LVOT Diameter 2.5 cm LV Ejection Fraction 2D Teich 56.5 % LV Ejection Fraction MOD 4C 70.5 % LV Ejection Fraction MOD 2C 60.9 % LV Ejection Fraction 2C AL 60.5 % LA Diameter 3.5 cm RA Systolic Volume 4C AL 58.4 ml RA Systolic Volume 4C MOD 57.2 ml Aorta at Sinotubular Diameter 2.9 cm M-MODE LA Ao Ratio MM 1.2 AV Cusp Separation MM 2.6 cm DOPPLER MV Area PHT 2.7 cm squared Mitral E to A Ratio 0.8 TV Peak Velocity 143.5 cm/s TR Peak Velocity 221.0 cm/s TR Peak Gradient 19.5 mmHg TV Peak E Velocity 82.0 cm/s Right Atrial Pressure 3.0 mmHg Pulmonary Artery Systolic Pressu 22.5 mmHg PV Peak Velocity 114.0 cm/s FINDINGS Left Ventricle Normal left ventricular size, systolic function and wall thickness, with no regional wall motion abnormalities. Left ventricular ejection fraction is estimated at 60 %. Grade I/IV diastolic dysfunction (abnormal relaxation filling pattern), normal to mildly elevated filling pressures. Right Ventricle The right ventricle is normal in size and function. Right Atrium The right atrium is normal in size. Left Atrium The left atrium is normal in size. Mitral Valve Moderately thickened mitral valve. No mitral valve stenosis. Moderate mitral annular calcification. No mitral valve regurgitation. Aortic Valve Not well visualized though, Moderate aortic valve calcification. No aortic valve stenosis. No aortic valve regurgitation. Tricuspid Valve Structurally normal tricuspid valve without significant stenosis or regurgitation. Pulmonary artery systolic pressure is normal. Pulmonic Valve Structurally normal pulmonic valve without significant stenosis. There is no pulmonic regurgitation. Pericardium Normal pericardium without effusion. Aorta Normal ascending aorta dimension. IVC The inferior vena cava appears normal. CONCLUSIONS Normal left ventricular size, systolic function and wall thickness, with no regional wall motion abnormalities. Left ventricular ejection fraction is estimated at 60 %. Grade I/IV diastolic dysfunction (abnormal relaxation filling pattern), normal to mildly elevated filling pressures. Moderate aortic valve calcification. No aortic valve stenosis. No aortic valve regurgitation. No significant valve abnormalities. There is no pericardial effusion. Pulmonary artery systolic pressure is within normal limits. Right atrial pressure is around 5 mm of mercury. Sae Randall MD (Electronically Signed) Final Date: 12 May 2024 07:32 S
--- NOTE | 2024-05-11 14:13 | PC.NURSE ---
Right radial TR-band is removed, air was taken out slowly 2 ml's at a time. A dressing of 2 x 2 and tegaderm is applied. Patient tolerated well. Patient is reminded to not use her right hand/wrist for the next 24 hours. Patient states understanding.
== END 2024-05-11 14:52 | disposition home or self-care (01) ==
PROVIDERS: Admitting Provider Internal Medicine; PCP Internal Medicine; Visit Provider Internal Medicine
DX: I25.110 Atherosclerotic heart disease of native coronary artery with unstable angina pectoris (principal); I10 Essential (primary) hypertension; D35.01 Benign neoplasm of right adrenal gland; D35.02 Benign neoplasm of left adrenal gland; E26.9 Hyperaldosteronism, unspecified; R32 Unspecified urinary incontinence; Z80.8 Family history of malignant neoplasm of other organs or systems
CPT/HCPCS: 36415; 80053; 84484; 85049; 85730; 93005; 93306; 93458; 96374; 99152; 99153; C1769; C1887; C1894; G0378; G0379; J1644; J2250; J3010; J3480; J3490; J7030; Q0163; Q9967

== ENCOUNTER → 2024-05-23 13:53 | Outpatient (BNVA) | payer OTHER, SELFPAY | PROVIDERS: PCP Internal Medicine; Visit Provider Nurse Practitioner Family | DX: I10 Essential (primary) hypertension (principal); I25.10 Atherosclerotic heart disease of native coronary artery without angina pectoris; E27.9 Disorder of adrenal gland, unspecified; D35.01 Benign neoplasm of right adrenal gland; D35.02 Benign neoplasm of left adrenal gland; Z80.8 Family history of malignant neoplasm of other organs or systems | CPT/HCPCS: 80048; 83735 ==

== ENCOUNTER 2024-06-19 08:49 | Outpatient (CLI) | payer OTHER, SELFPAY ==
[2024-06-19 09:25] LABS: Anion Gap 14.9 (5-19); Blood Urea Nitrogen 12 mg/dL (6-20); Calcium 8.3 mg/dL (8.5-10.5); Carbon Dioxide 23 mmol/L (22-29); Chloride 106 mmol/L (98-107); Glomerular Filtration Rate 127.6 mL/min (90-130); Glucose 104 mg/dL (65-115); Magnesium 1.6 mg/dL (1.7-2.3); Osmolality Calculated 290 mOsm/kg (285-295); Potassium 3.9 mmol/L (3.5-5.1); Sodium 140 mmol/L (136-145)
== END 2024-06-19 08:50 | disposition home or self-care (01) ==
LOC: LAB 08:50
PROVIDERS: PCP Family Medicine; Visit Provider Internal Medicine
DX: E27.9 Disorder of adrenal gland, unspecified (principal); D35.01 Benign neoplasm of right adrenal gland; D35.02 Benign neoplasm of left adrenal gland; Z80.8 Family history of malignant neoplasm of other organs or systems
CPT/HCPCS: 36415; 80048; 83735

== ENCOUNTER 2024-08-03 10:28 | Outpatient (CLI) | payer OTHER, SELFPAY ==
[2024-08-03 11:30] LABS: Anion Gap 19.3 (5-19); Blood Urea Nitrogen 19 mg/dL (6-20); Calcium 9.2 mg/dL (8.5-10.5); Carbon Dioxide 18 mmol/L (22-29); Chloride 105 mmol/L (98-107); Glomerular Filtration Rate 127.6 mL/min (90-130); Glucose 113 mg/dL (65-115); Magnesium 1.7 mg/dL (1.7-2.3); Osmolality Calculated 289 mOsm/kg (285-295); Potassium 4.3 mmol/L (3.5-5.1); Sodium 138 mmol/L (136-145)
[2024-08-03 14:49] LABS: Basophils % 0.5 %; Eosinophils # 0.1 10^3/uL (0.0-0.8); Eosinophils % 1.4 %; Hematocrit 45.4 % (36-47); Lymphocytes # 2.6 10^3/uL (0.8-4.8); Lymphocytes % 39.2 %; Mean Corpuscular HGB Conc 33.5 g/dL (30-55); Mean Corpuscular Hemoglobin 30.7 pg (27-33); Mean Corpuscular Volume 91.7 fl (85-98); Mean Platelet Volume 10.2 fL (7.4-10.4); Monocytes # 0.6 10^3/uL (0.2-0.9); Monocytes % 9.3 %; Neutrophils # 3.27 10^3/uL (1.8-7.7); Neutrophils % 49.1 %; Nucleated Red Blood Cells % 0 %; Platelet Count 204 10^3/cmm (157-399); Red Blood Count 4.95 10^6/uL (3.85-5.65); Red Cell Distribution Width 14.1 % (12.1-15.1); White Blood Count 6.64 10^3/uL (3.29-11.43)
== END 2024-08-03 10:29 | disposition home or self-care (01) ==
LOC: LAB 10:33
PROVIDERS: PCP Family Medicine; Visit Provider Internal Medicine
DX: E27.9 Disorder of adrenal gland, unspecified (principal); D35.01 Benign neoplasm of right adrenal gland; D35.02 Benign neoplasm of left adrenal gland; E26.9 Hyperaldosteronism, unspecified
CPT/HCPCS: 36415; 80048; 83735; 85025

== ENCOUNTER 2024-10-23 10:49 | Outpatient (CLI) | payer OTHER, SELFPAY ==
[2024-10-23 11:28] LABS: Anion Gap 16.3 (5-19); Blood Urea Nitrogen 13 mg/dL (6-20); Carbon Dioxide 23 mmol/L (22-29); Chloride 105 mmol/L (98-107); Glomerular Filtration Rate 127.6 mL/min (90-130); Glucose 87 mg/dL (65-115); Osmolality Calculated 289 mOsm/kg (285-295); Potassium 4.3 mmol/L (3.5-5.1); Sodium 140 mmol/L (136-145)
== END 2024-10-23 10:50 | disposition home or self-care (01) ==
PROVIDERS: PCP Family Medicine; Visit Provider Internal Medicine
DX: E27.9 Disorder of adrenal gland, unspecified (principal); D35.01 Benign neoplasm of right adrenal gland; D35.02 Benign neoplasm of left adrenal gland; I10 Essential (primary) hypertension; E26.9 Hyperaldosteronism, unspecified
CPT/HCPCS: 36415; 80048

== ENCOUNTER → 2024-11-02 09:07 | Outpatient (BNVA) | payer MEDICARE, OTHER, SELFPAY | PROVIDERS: PCP Family Medicine; Visit Provider Internal Medicine | DX: E27.9 Disorder of adrenal gland, unspecified (principal); R53.83 Other fatigue; D35.01 Benign neoplasm of right adrenal gland; D35.02 Benign neoplasm of left adrenal gland; I10 Essential (primary) hypertension; Z80.8 Family history of malignant neoplasm of other organs or systems; R32 Unspecified urinary incontinence; E26.9 Hyperaldosteronism, unspecified; E55.9 Vitamin D deficiency, unspecified | CPT/HCPCS: 99214 ==

== ENCOUNTER 2024-12-29 11:19 | Outpatient (CLI) | payer MEDICARE, OTHER, SELFPAY ==
--- NOTE | 2024-12-29 11:25 | MR_ITS ---
WS: [id number] MRI LEFT SHOULDER NONCONTRAST TECHNIQUE: Sagittal T2, coronal T1, T2 and proton density imaging. Axial gradient PDE imaging. CLINICAL INFORMATION: ACUTE PAIN OF LEFT SHOULDER COMPARISON: None. FINDINGS: Severe degenerative arthritis AC joint advanced for patient this age. Small amount of associated edema. Narrowing of the subacromial space with subacromial spurring. Impingement on the distal supraspinatus. Mild chronic thinning of the supraspinatus and infraspinatus which appear intact. Tiny insertional tear distal supraspinatus. Normal teres minor. Subscapularis tendon appears intact. Biceps tendon appears intact within the bicipital groove. Slight medial subluxation of the biceps tendon along the proximal bicipital groove. Intra-articular biceps tendon appears intact. Moderate degenerative narrowing of the glenohumeral articu lation. MR/MR shoulder LT wo con* [id number] IMPRESSION: 1. Advanced degenerative arthritis AC joint with edema. Narrowing of the subac romial space. 2. Mild chronic thinning of the supraspinatus which appears intact. Tiny inser tional tear distally. 3. Slight medial subluxation of the proximal biceps tendon along the bicipital groove. Intra-articular biceps tendon appears intact. 4. Moderate degenerative narrowing of the glenohumeral articulation.
== END 2024-12-29 11:20 | disposition home or self-care (01) ==
PROVIDERS: PCP Family Medicine; Visit Provider Physician Assistant
DX: M19.012 Primary osteoarthritis, left shoulder (principal); R93.7 Abnormal findings on diagnostic imaging of other parts of musculoskeletal system; M67.814 Other specified disorders of tendon, left shoulder; M75.42 Impingement syndrome of left shoulder
CPT/HCPCS: 73221

== ENCOUNTER 2025-01-30 08:21 | Outpatient (CLI) | payer MEDICARE, OTHER, SELFPAY ==
[2025-01-30 09:27] LABS: Alanine Aminotransferase 13 U/L (0-33); Albumin Level 4.3 g/dL (3.5-5.2); Alkaline Phosphatase 84 U/L (35-105); Anion Gap 18.7 (5-19); Aspartate Amino Transferase 19 U/L (0-32); Blood Urea Nitrogen 11 mg/dL (6-20); Calcium 9.4 mg/dL (8.5-10.5); Carbon Dioxide 21 mmol/L (22-29); Chloride 105 mmol/L (98-107); Globulin 3.2 g/dL (1.3-4.6); Glucose 94 mg/dL (65-115); Osmolality Calculated 291 mOsm/kg (285-295); Potassium 3.7 mmol/L (3.5-5.1); Sodium 141 mmol/L (136-145); Thyroid Stimulating Hormone 1.47 uIU/mL (0.27-4.20); Total Protein 7.5 g/dL (6.6-8.7)
[2025-01-30 11:27] LABS: Vitamin B12 > 2000 pg/mL (232-1245)
[2025-02-01 19:00] LABS: Immunoglobulin A 354 mg/dL (47-310)
[2025-02-03 08:14] LABS: Gliadin Ab.IgA 3.3 U/mL; Gliadin Ab.IgG <1.0 U/mL; Tissue transglutaminase Ab.IgG <1.0 U/mL
== END 2025-01-30 08:22 | disposition home or self-care (01) ==
PROVIDERS: PCP Family Medicine; Visit Provider Internal Medicine
DX: E55.9 Vitamin D deficiency, unspecified (principal); E26.9 Hyperaldosteronism, unspecified; R32 Unspecified urinary incontinence; Z80.8 Family history of malignant neoplasm of other organs or systems; I10 Essential (primary) hypertension; D35.01 Benign neoplasm of right adrenal gland; D35.02 Benign neoplasm of left adrenal gland; R53.83 Other fatigue; E27.9 Disorder of adrenal gland, unspecified
CPT/HCPCS: 36415; 80053; 82306; 82607; 82784; 83516; 84443

== ENCOUNTER → 2025-02-01 10:28 | Outpatient (BNVA) | payer MEDICARE, OTHER, SELFPAY | PROVIDERS: PCP Family Medicine; Visit Provider Internal Medicine | DX: E55.9 Vitamin D deficiency, unspecified (principal); E26.9 Hyperaldosteronism, unspecified; D35.01 Benign neoplasm of right adrenal gland; D35.02 Benign neoplasm of left adrenal gland; I10 Essential (primary) hypertension | CPT/HCPCS: 99214 ==

== ENCOUNTER 2025-02-05 12:30 | Outpatient (CLI) | payer MEDICARE, OTHER, SELFPAY ==
--- NOTE | 2025-02-05 12:40 | MR_ITS ---
WS: [id number] MRI RIGHT KNEE NONCONTRAST TECHNIQUE: Axial PD, coronal PD fat sat, coronal PD, sagittal PD, and sagittal PD fat-sat images obtained. CLINICAL INFORMATION: CHRONIC PAIN OF R KNEE COMPARISON: None. FINDINGS: Serpiginous areas of abnormal bone marrow signal with peripheral hemosiderin in the distal femoral condyles and metaphysis as well as the partially visualized proximal tibia most compatible with bony infarcts. Recommend correlation with clinical history. Distal quadriceps and patella tendons are intact. Hypertrophic patella. ACL and PCL appear intact. Chronic thinning of the medial and lateral meniscus. No acute appearing meniscal tears. Moderate tricompartmental arthritis with hypertrophic changes along the joint line. Hypertrophic patella. Advanced chondromalacia patella with chondral fissuring involving the medial patellar facet. Medial and lateral collateral ligaments appear intact. Normal popliteal fossa. Small lobulated ganglion cyst along the undersurface of the PCL. This measures approximately 6.6 mm. MR/MR knee RT wo con* [id number] IMPRESSION: 1. 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 Recommend correlation with clinical history. 2. Moderate to advanced tricompartmental arthritis. 3. Advanced chondromalacia patella with chondral fissuring involving the media l patellar facet. 4. Chronic thinning of the medial and lateral meniscus. No acute appearing men iscal tears. 5. Small lobulated ganglion cyst measuring 6 mm along the undersurface of the PCL. 6. No other acute findings. Outbridge grading: grade IV: full-thickness cartilage loss with underlying bone reactive changes
== END 2025-02-05 12:31 | disposition home or self-care (01) ==
LOC: RAD 12:35
PROVIDERS: PCP Family Medicine; Visit Provider Physician Assistant
DX: M17.11 Unilateral primary osteoarthritis, right knee (principal); M22.41 Chondromalacia patellae, right knee; M67.461 Ganglion, right knee
CPT/HCPCS: 73721

== ENCOUNTER → 2025-03-14 13:38 | Outpatient (BNVA) | payer MEDICARE, OTHER, SELFPAY | PROVIDERS: PCP Family Medicine; Visit Provider Internal Medicine | DX: I25.10 Atherosclerotic heart disease of native coronary artery without angina pectoris (principal); I10 Essential (primary) hypertension; Z79.82 Long term (current) use of aspirin; F17.200 Nicotine dependence, unspecified, uncomplicated; Z95.5 Presence of coronary angioplasty implant and graft; I25.2 Old myocardial infarction | CPT/HCPCS: 99214 ==

== ENCOUNTER 2025-07-03 08:26 | Outpatient (CLI) | payer MEDICARE, OTHER, SELFPAY | END 2025-07-03 08:27 | disposition home or self-care (01) | PROVIDERS: PCP Family Medicine; Visit Provider Internal Medicine | DX: E83.42 Hypomagnesemia (principal); E26.9 Hyperaldosteronism, unspecified; R32 Unspecified urinary incontinence; Z80.8 Family history of malignant neoplasm of other organs or systems; D35.01 Benign neoplasm of right adrenal gland; D35.2 Benign neoplasm of pituitary gland; I10 Essential (primary) hypertension; R53.83 Other fatigue | CPT/HCPCS: 36415 ==